=== PATIENT | female | born 1955 | race Caucasian/White ===

== ENCOUNTER 2023-01-21 20:36 | Emergency (ER) | payer OTHER ==
[~2023-01-21] VITALS: Ht 175.3 cm; Wt 73.0 kg
[2023-01-21 20:45] VITALS: O2SAT 99
[2023-01-21] MEDS ORDERED: KETOROLAC 30MG/ML VIAL IV NR (22:58)
[2023-01-21] MEDS ORDERED: ONDANSETRON HCL 4MG/2ML INJ IV NR (22:58)
[2023-01-21] MEDS ORDERED: SODIUM CHLORIDE 0.9% 1,000 ML IV ONE (23:00)
[2023-01-21 23:50] LABS: BASOPHILS % 0.3 % (0.0-2.0); EOSINOPHILS % 0.3 % (0.0-5.0); HEMATOCRIT. 23.1 % (36.0-48.0); HEMOGLOBIN. 7.6 g/dL (12.0-16.0); LYMPHOCYTES % 11.7 % (20.0-50.0); MEAN CORPUSCULAR HEMOGLOBIN 29.6 pg (28.0-32.0); MEAN CORPUSCULAR HGB CONC 32.8 g/dL (31.0-37.0); MEAN PLATELET VOLUME 6.5 fl (7.4-10.4); NEUTROPHILS % 81.7 % (40.0-76.0); PLATELET 264 x1000/uL (130-400); RED BLOOD CELL COUNT 2.56 mill/uL (4.2-5.4); WHITE BLOOD COUNT 7.3 x1000/uL (4.5-11.0)
[2023-01-22 00:03] LABS: ALANINE AMINOTRANSFERASE 17 IU/L (10-49); ASPARTATE AMINOTRANSFERASE 33 IU/L (<34); BILIRUBIN TOTAL 0.8 mg/dL (0.1-1.0); CALCIUM 7.9 mg/dL (8.7-10.4); CARBON DIOXIDE 23 mEq/L (21-32); CHLORIDE 104 mEq/L (98-107); CREATININE 1.1 mg/dL (0.6-1.0); GLUCOSE 94 mg/dL (70-105); POTASSIUM 2.9 mEq/L (3.5-5.1); PROTEIN TOTAL 5.9 g/dL (6.0-8.3); SODIUM 139 mEq/L (136-145); UREA NITROGEN BLOOD 18 mg/dL (9-23)
[2023-01-22] MEDS ORDERED: KCL 20MEQ/100ML PREMIX 100 ML IV ONE (05:15)
[2023-01-22] MEDS ORDERED: POTASSIUM CHLORIDE 20MEQ/PACKET PO ONE (05:15)
[2023-01-22 08:12] VITALS: BP 182/98; PULSE 89; RESP 16; TEMP 97.3
== END 2023-01-22 08:29 | disposition short-term general hospital (02) ==
LOC: ER 20:36
DX: R10.84 Generalized abdominal pain (principal); R11.2 Nausea with vomiting, unspecified; I10 Essential (primary) hypertension; I25.2 Old myocardial infarction
CPT/HCPCS: 99285; 96374; 71045; 96361; 80053; 83605; 83690; 85025; 36415; 93005; 74176; J1885; J2405; J3480

== ENCOUNTER 2024-12-26 18:27 | Emergency (ER) | payer MEDICARE, OTHER ==
[~2024-12-26] VITALS: Ht 162.6 cm; Wt 59.0 kg
[~2024-12-26 18:27] MED LIST: ALBU18HF2 IH; FLUT1AER INH
[2024-12-26 18:30] VITALS: O2SAT 99
[2024-12-26 19:13] LABS: BASOPHILS % 0.4 % (0.0-2.0); EOSINOPHILS % 1.6 % (0.0-5.0); HEMATOCRIT. 27.9 % (36.0-48.0); HEMOGLOBIN. 8.7 g/dL (12.0-16.0); LYMPHOCYTES % 7.7 % (20.0-50.0); MEAN PLATELET VOLUME 7.2 fl (7.4-10.4); MONOCYTES % 9.9 % (2.0-8.0); NEUTROPHILS % 80.4 % (40.0-76.0); PLATELET 311 x1000/uL (130-400); RED BLOOD CELL COUNT 3.50 mill/uL (4.2-5.4); RED CELL DISTRIBUTION WIDTH 17.8 % (11.6-14.6)
[2024-12-26] MEDS: SODIUM CHLORIDE 0.9% 1,000 ML IV ONE (19:19)
[2024-12-26 19:24] LABS: INR 1.0
[2024-12-26 19:28] LABS: CREATININE 0.9 mg/dL (0.6-1.0); UREA NITROGEN BLOOD 13 mg/dL (9-23)
[2024-12-26 19:29] LABS: TROPONIN I HIGH SENSITIVITY 4 ng/L (3.0-34)
[2024-12-26 19:30] LABS: ASPARTATE AMINOTRANSFERASE 11 IU/L (<34); BILIRUBIN DIRECT 0.2 mg/dL (<=3.0); BILIRUBIN TOTAL 0.5 mg/dL (0.1-1.0); PROTEIN TOTAL 6.5 g/dL (6.0-8.3)
[2024-12-26] MEDS: MORPHINE SULFATE 4 MG/ML INJ (FOR IV/IM USE) IV ONE (19:39)
[2024-12-26] MEDS: ONDANSETRON HCL 4MG/2ML INJ IV ONE (19:39)
[2024-12-26] MEDS: SODIUM CHLORIDE 0.9% (SEPSIS BOLUS) IV ONE (21:45)
[2024-12-26 22:26] LABS: CREATININE 0.8 mg/dL (0.6-1.0); UREA NITROGEN BLOOD 12 mg/dL (9-23)
[2024-12-26] MEDS: METRONIDAZOLE 500 MG PREMIX 100 ML IV ONE (22:53)
[2024-12-26] MEDS: LEVOFLOXACIN 750MG PREMIX 150 ML IV ONE (23:50)
[2024-12-27 02:03] VITALS: BP 111/80; PULSE 73; RESP 12; TEMP 37.1; O2SAT 96
== END 2024-12-27 02:05 | disposition short-term general hospital (02) ==
LOC: ER 18:27 → CMPBEDREQ 12-27 07:25
DX: R10.84 Generalized abdominal pain (principal); K52.9 Noninfective gastroenteritis and colitis, unspecified; I11.9 Hypertensive heart disease without heart failure; I25.2 Old myocardial infarction; I25.10 Atherosclerotic heart disease of native coronary artery without angina pectoris; K74.60 Unspecified cirrhosis of liver; Z79.51 Long term (current) use of inhaled steroids; Z86.73 Personal history of transient ischemic attack (TIA), and cerebral infarction without residual deficits; Z87.19 Personal history of other diseases of the digestive system
CPT/HCPCS: 99285; 74176; 96365; 96361; 96375; 71045; 96367; 80076; 80048; 83880; 83605; 83690; 85025; 85610; 85730; 87040; 84484; 87077; 36415; 93005; J3490; J2405; J2270; J1956; J7030